=== PATIENT | female | born 1985 | race Caucasian/White ===

== ENCOUNTER 2020-09-13 06:40 | Emergency (ER) | payer OTHER ==
[~2020-09-13 06:40] MED LIST: BENADRYL25 MG PO; IBUPROFEN800 MG PO; NORCO 5-325 TA1 EACH PO
[2020-09-13 08:09] LABS: BASOPHIL 0.7 % (0-2); EOSINOPHIL 2.4 % (0-5); HCT 39.2 % (37.0-47.0); HGB 12.8 g/dl (12.5-16.0); LYMPHOCYTE 32.5 % (15-48); MCH 29.4 pg (25.0-31.0); MCHC 32.7 g/dL (32.0-36.0); MCV 90.1 fL (78.0-100.0); MONOCYTE 10.3 % (0-12); MPV 9.8 fL (6.0-9.5); NEUTROPHIL 53.8 % (41-80); NRBC 0; PLT 376 K/uL (150-400); RBC 4.35 M/uL (4.20-5.40); RDW 13.9 % (11.5-14.0); WBC 9.1 K/uL (4.0-10.5)
[2020-09-13 08:33] LABS: BILIRUBIN NEGATIVE (NEGATIVE); BLOOD NEGATIVE Ery/uL (NEGATIVE); CLARITY CLEAR (CLEAR); COLOR YELLOW (YELLOW); GLUCOSE (U) NORMAL (NORMAL); LEUKOCYTES NEGATIVE Leu/uL (NEGATIVE); NITRITE NEGATIVE (NEGATIVE); PROTEIN NEGATIVE (NEGATIVE); SPECIFIC GRAVITY 1.025 (1.001-1.030); UROBILINOGEN 0.2 mg/dL (0.2-1.0); pH 5.5 (5.0-9.0)
[2020-09-13 08:34] LABS: ALBUMIN 4.3 g/dL (3.4-5.0); BILIRUBIN - TOTAL 0.5 mg/dL (0.2-1.0); BUN/CREAT RATIO (CALC) 15.2 RATIO; CREATININE 0.99 mg/dL (0.51-0.95); GLOBULIN (CALCULATION) 3.7 g/dL; POTASSIUM 2.5 mmol/L (3.5-5.1)
[2020-09-13 08:37] LABS: AMPHETAMINES POSITIVE (NEGATIVE); BARBITURATES NEGATIVE (NEGATIVE); ECSTASY (MDMA) NEGATIVE (NEGATIVE); MARIJUANA (THC) NEGATIVE (NEGATIVE); METHADONE NEGATIVE (NEGATIVE); OPIATES NEGATIVE (NEGATIVE); OXYCODONE NEGATIVE (NEGATIVE)
[2020-09-13] MEDS ORDERED: K-DUR20 MEQ PO (09:07)
== END 2020-09-13 10:07 | disposition home or self-care (01) ==
LOC: FER 06:40
PROVIDERS: Emergency Medicine
DX: M54.9 Dorsalgia, unspecified (principal); E87.6 Hypokalemia; F19.10 Other psychoactive substance abuse, uncomplicated; M51.36 Other intervertebral disc degeneration, lumbar region; I10 Essential (primary) hypertension; F17.200 Nicotine dependence, unspecified, uncomplicated; Z88.0 Allergy status to penicillin; Z79.899 Other long term (current) drug therapy
CPT/HCPCS: 36415; 72040; 72072; 72100; 80053; 80305; 81003; 85025; G0480; J1885

== ENCOUNTER 2021-03-19 21:19 | Emergency (ER) | payer OTHER ==
[~2021-03-19 21:19] MED LIST changes: +K-DUR20 MEQ PO
== END 2021-03-20 04:45 | disposition home or self-care (01) ==
LOC: FER 21:19
DX: M54.2 Cervicalgia (principal); M79.603 Pain in arm, unspecified; M79.609 Pain in unspecified limb; R51.9 Headache, unspecified; I10 Essential (primary) hypertension; F17.200 Nicotine dependence, unspecified, uncomplicated; Z59.0 Homelessness
CPT/HCPCS: 99283